=== PATIENT | female | born 1955 | race American Indian/Alaskan Native ===

== ENCOUNTER 2018-03-29 12:51 | Outpatient (CLI) | payer OTHER ==
[2018-03-29 13:29] LABS: Blood Urea Nitrogen 13 mg/dL (7-17)
== END 2018-03-29 12:52 | disposition home or self-care (01) ==
LOC: FLUORO 12:51
PROVIDERS: ATTEND Physician Assistant
DX: S46.911A Strain of unspecified muscle, fascia and tendon at shoulder and upper arm level, right arm, initial encounter (principal); X58.XXXA Exposure to other specified factors, initial encounter; Y93.89 Activity, other specified; Y92.89 Other specified places as the place of occurrence of the external cause; Y99.8 Other external cause status
CPT/HCPCS: 36415; 82565; 84520